=== PATIENT | female | born 1935 | race Caucasian/White ===

== ENCOUNTER → 2016-07-26 | Outpatient (CLI) | payer MEDICARE, OTHER ==
[~2016-07-26] MED LIST: ASPI-498 OR; MEMA10TA PO
[2016-07-26 16:15] VITALS: BP 133/87
== END ==
LOC: Rad HDHVI 15:07
PROVIDERS: ATTEND Internal Medicine Cardiovascular Disease
DX: S72.012A Unspecified intracapsular fracture of left femur, initial encounter for closed fracture (principal); M85.88 Other specified disorders of bone density and structure, other site
CPT/HCPCS: 73502; 73560; G0463